=== PATIENT | male | born 1955 | race Caucasian/White ===

== ENCOUNTER 2018-03-11 08:59 | Inpatient (IN) ==
[2018-03-11] MEDS ORDERED: Heparin 1,000 UNITS/500 mL 1,000 ML ONE (09:10)
[2018-03-11] MEDS ORDERED: Lidocaine 1% 20 ML MDV ONE (09:11)
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
[2018-03-11] MEDS ORDERED: CeFAZolin Syr 2,000MG/20 ML 2,000 MG/20 ML SYRINGE IVPB ONE (09:27)
[2018-03-11] MEDS ORDERED: Albuterol 2.5 MG/3 ML NEBULIZER IH ONE (09:27)
[2018-03-11] MEDS ORDERED: Albuterol 2.5 MG/3 ML NEBULIZER ONE (09:29)
[2018-03-11] MEDS: Ringers Solution, Lactated 1,000 ML IVC SCH ×2 (09:54→12:00)
--- NOTE | 2018-03-11 09:59 | History & Physical Report ---
Date of Encounter: 03/11/18 Time of Encounter: 09:58 24 Hour HP Update - Instructions Instructions: If the History and Physical is less than 30 days old and was completed prior to A.M. admission and or procedure and has NOT been updated on calendar day of procedure please complete this update prior to performing procedure. - Update Patient reports changes in Medical Condition: No Changes in examination, assessment, or condition: No Changes in Medication: No Preop tests/diagnostics Reviewed: Yes Surgery Remains Indicated: Yes Consent for Planned Operative Procedure(s) Verified: Yes - Pre-Operative Checklist Preoperative Checklist Indicated: Yes Prophylactic Antibiotic Ordered: Yes Home Medications Include Beta Jack: No Beta Jack Taken Today (Day of Surgery): No Beta Jack Taken Yesterday (Day Prior to Surgery): No Is VTE Prophylaxis Indicated?: Yes
[2018-03-11] MEDS ORDERED: ceFAZolin 1,000 MG, Sodium Chloride IRRigation 1,000 ML IR ONE (11:35)
[2018-03-11] MEDS ORDERED: *HR* Heparin 5,000 UNIT/ML VIAL ONE ×3 (11:38→12:22)
[2018-03-11] MEDS ORDERED: Dexamethasone 4 MG/ML VIAL ONE (11:38)
[2018-03-11] MEDS ORDERED: *HR* Phenylephrine 10 MG/ML VIAL ONE (11:38)
[2018-03-11] MEDS ORDERED: *HR* FentaNYL (PF) 100 MCG/2 ML VIAL ONE (11:38)
[2018-03-11] MEDS ORDERED: *HR* Succinylcholine 200 MG/10 ML VIAL IVP ONE (11:38)
[2018-03-11] MEDS ORDERED: *HR* Midazolam HCl 5 MG/5 ML VIAL IVP ONE (11:38)
[2018-03-11] MEDS ORDERED: *HR* Rocuronium Bromide 50 MG/5 ML VIAL ONE (11:38)
[2018-03-11] MEDS ORDERED: *HR* Propofol 200 MG/20 ML VIAL IVP ONE (11:38)
[2018-03-11] MEDS ORDERED: Ondansetron 4 MG/2 ML VIAL ONE (11:38)
[2018-03-11] MEDS ORDERED: EPHEDrine 50 MG/ML VIAL ONE (11:38)
[2018-03-11] MEDS ORDERED: Lidocaine -MPF 4% 5 ML AMPUL ONE (11:38)
[2018-03-11] MEDS ORDERED: Lidocaine -MPF 2% 2 ML VIAL ONE (11:38)
[2018-03-11] MEDS ORDERED: *HR* Remifentanil 1 MG VIAL IVP ONE (11:38)
--- NOTE | 2018-03-11 11:44 | Anesthesia Procedures ---
Date of Encounter: 03/11/18 Time of Encounter: 10:30 Procedures: Anesthesia - Arterial Line Consent obtained: written consent Time out performed: Yes (procedure done after induction) Size (Gauge): 20 Length (inches): 1 3/4 Technique Used: sterile prep, guide wire technique Post-Procedure: line taped into place, dry sterile dressing placed Patient tolerated procedure: well Complications: none Site: Radial L Comments: first attempt unable to thread catheter. Successful second puncture
[2018-03-11] MEDS ORDERED: Ondansetron 4 MG/2 ML VIAL IVP ONE (11:46)
[2018-03-11] MEDS ORDERED: *HR* Labetalol 100 MG/20 ML MDV IVP PRN (11:46)
[2018-03-11] MEDS ORDERED: *HR* Promethazine 25 MG/ML VIAL IVP PRN (11:46)
--- NOTE | 2018-03-11 13:03 | Operative Note ---
Date of procedure: 03/11/18 Pre-op diagnosis: right carotid stenosis Post-op diagnosis: same Procedure: right carotid endarterectomy with 8 Fr shunt and bovine patch angioplasty Complications: none Anesthesia: GETA Surgeon: Deep Hardy Was there an activities assistant present: No Estimated blood loss (cc): 75 Specimen: 0 Condition: stable Disposition: PACU Procedure in Detail: History Mr. Myers is a 62-year-old white male with multiple ongoing medical problems who was found to have a carotid bruit and abnormal carotid duplex scan. There was marked elevation in his velocities which led to an angiogram performed last week. This demonstrated a critical stenosis of greater than 95% in the proximal right internal carotid artery. The patient now comes to the operating room for correction of this lesion. Procedure After informed consent was obtained the patient was taken to the operating room. General endotracheal anesthesia was established under arterial line pressure monitoring. The right neck was then sterilely prepped and draped. A timeout protocol was observed. An oblique incision was then made parallel to the anterior border of the right sternocleidomastoid muscle. Dissection was carried down to reveal the carotid sheath. The carotid sheath was opened. The contents of the carotid sheath were identified and the nerve structures were preserved. Crossing veins were divided and ligated. Selective control was obtained of the carotid arteries. 5 thousand units of heparin were administered intravenously. After a three-minute delay the vessels were clamped with the internal carotid artery clamped first. Using an 11 blade knife and Snell scissors the artery was opened. An 8 Nigerien shunt was then placed. Patency the shunt was confirmed by the use of intraoperative Doppler. Evaluation of the plaque revealed a critical plaque that was heterogeneous at the origin of the internal carotid artery. There was no finding of intraluminal thrombus. There appeared to be old intramural thrombus. Dissection of the plaque was then begun at the distal aspect of the common carotid artery. A dissection plane was established. The dissection was carried proximally and distally. The orifice of the external carotid and superior thyroid artery were endarterectomized. The endpoint on the internal carotid artery was inspected. The endpoint was smooth and no tacking sutures were necessary. The bed of the vessels and flushed with a copious amount of heparinized saline. A bovine pericardial patch angioplasty was then performed. This was sewn into position using 2 6-0 Prolene sutures. Leaving a small space open on the suture line the shunt was clamped and divided and removed. Backbleeding was then performed of the internal carotid artery which was then reclamped. The final few sutures were then placed. After appropriate backbleeding and flushing the arteries were opened first into the external carotid and then finally into the internal carotid artery. There was no hemodynamic distress with this maneuver. The arteries demonstrated excellent pulsation on palpation and also with Doppler's evaluation. The wound was irrigated and hemostasis achieved. A superficial cervical block using half percent Marcaine was performed. The wound was then closed in layers using absorbable suture. There were no intraoperative complications. The patient tolerated the procedure well. The patient was extubated on the operating room table. He was neurologically intact. He was then transferred to the recovery room in stable condition.
[2018-03-11] MEDS: *HR* HYDROmorphone (PF) 1 MG/ML SYRINGE IVP PRN ×4 (13:12→13:35)
[2018-03-11] MEDS ORDERED: *HR* OxyCODONE Immed Rel 5 MG TABLET PO PRN (13:34)
[2018-03-11] MEDS ORDERED: Acetaminophen IV 1,000 MG/100 ML INFUS..BTL IVPB ONE (13:34)
--- NOTE | 2018-03-11 13:57 | Anesthesia Evaluation Post Op ---
Date of Encounter: 03/11/18 Time of Encounter: 14:00 - Vital Signs Vital Signs: Selected Entries 03/11/18 13:35 03/11/18 13:45 Temperature 98.7 F Pulse Rate 72 Respiratory Rate 18 Blood Pressure 94/60 O2 Sat by Pulse Oximetry 98 - Lungs Lungs: Clear Ascult./Percussion - Airway Airway: Non-obstructed - Cardiovascular Regular Rate - Mental Status Mental Status: Alert & Oriented, Answers Appropriately - Nausea Vomiting Nausea Vomiting: Not Present - Hydration Hydration: Tolerates oral liquids - Discharge PostOp Status: Transfer Patient to floor
[2018-03-11] MEDS ORDERED: Albuterol 2.5 MG/3 ML NEBULIZER IH PRN (14:45)
[2018-03-11] MEDS ORDERED: Ondansetron 4 MG/2 ML VIAL IVP PRN (14:45)
[2018-03-11] MEDS ORDERED: diazePAM 5 MG TABLET PO PRN (14:45)
[2018-03-11] MEDS ORDERED: *HR* Labetalol 20 MG/4 ML SYRINGE IVP PRN (14:45)
[2018-03-11] MEDS ORDERED: Naloxone 0.4 MG/ML INJ IVP PRN (14:45)
[2018-03-11] MEDS ORDERED: Cyanocobalamin (B-12) 1,000 MCG/ML VIAL IM SCH (14:45)
[2018-03-11] MEDS: Nicotine 21 MG PATCH.TD24 TD SCH (17:59)
[2018-03-11] MEDS: Gabapentin 400 MG CAPSULE PO SCH ×2 (18:00→20:16)
[2018-03-11] MEDS: *HR* OxyCODONE/APAP 10/325 TABLET PO PRN ×2 (18:00→22:59)
[2018-03-11] MEDS: Diclofenac Sodium 75 MG TABLET PO SCH (20:16)
[2018-03-11] MEDS: Acetaminophen/Butalbital/CaffeineTABLET PO PRN (20:16)
[2018-03-11] MEDS: Methocarbamol 750 MG TABLET PO PRN (20:17)
[2018-03-11] MEDS ORDERED: Lidocaine OINT 35.44 GM TUBE TP PRN (21:02)
[2018-03-12 04:53] LABS: Basophils % 0.1 %; Eosinophils % 0.1 %; Hematocrit 26.7 % (37.5-50.1); Immature Granulocytes % 0.4 % (0-4); Lymphocytes # 1.8 K/mcL (0.6-4.6); Lymphocytes % 14.5 %; Mean Corpuscular HGB Conc 34.8 g/dL (31.6-35.5); Mean Corpuscular Hemoglobin 34.3 pg (28.0-33.3); Mean Corpuscular Volume 98.5 fL (83.0-100.0); Mean Platelet Volume 9.5 fL (9.4-12.4); Monocytes # 0.6 K/mcL (0.0-1.3); Neutrophils # 9.9 K/mcL (1.6-8.9); Platelet Count 218 K/mcL (140-400); Red Blood Count 2.71 M/mcL (4.19-5.50); Red Cell Distribution Width 13.2 % (11.5-14.5); Segmented Neutrophils % 79.9 %
[2018-03-12 04:59] LABS: Hemoglobin 9.3 g/dL (12.9-16.9)
[2018-03-12 05:13] LABS: BUN/Creatinine Ratio 24 (6-26); Blood Urea Nitrogen 28 mg/dL (8-23); Calcium 8.4 mg/dL (8.6-10.3); Carbon Dioxide 22 mEq/L (23-29); Chloride 102 mEq/L (98-107); Glucose 133 mg/dL (70-105); Osmolality,Calculated 277 (280-300); Potassium 4.3 mEq/L (3.5-5.1); Sodium 130 mEq/L (136-145); eGFR For Non-African Americans > 60 (> 60)
[2018-03-12] MEDS: Diclofenac Sodium 75 MG TABLET PO SCH (08:06)
[2018-03-12] MEDS: Acetaminophen/Butalbital/CaffeineTABLET PO PRN (08:06)
[2018-03-12] MEDS: Gabapentin 400 MG CAPSULE PO SCH (08:07)
[2018-03-12] MEDS: *HR* OxyCODONE/APAP 10/325 TABLET PO PRN ×2 (08:07→12:00)
[2018-03-12] MEDS: Nicotine 21 MG PATCH.TD24 TD SCH (08:07)
[2018-03-12] MEDS ORDERED: Lisinopril 20 MG TABLET PO SCH (09:00)
[2018-03-12] MEDS ORDERED: HYDROCHLOROTHIAZIDE PO SCH (09:00)
[2018-03-12] MEDS ORDERED: (Vilazodone Hcl [Viibryd] 20 MG) PO SCH (09:00)
[2018-03-12] MEDS ORDERED: [UNRECOGNIZED DRUG - OTHER] PO SCH (09:00)
[2018-03-12] MEDS ORDERED: hydroCHLOROthiazide 25 MG TABLET PO SCH (09:00)
[2018-03-12] MEDS ORDERED: BENAZEPRIL PO SCH (09:00)
[2018-03-12] MEDS ORDERED: Aspirin Enteric Coated 81 MG Tablet PO SCH (09:00)
--- NOTE | 2018-03-12 09:29 | Discharge Summary ---
Orders not resulted at time of discharge: Pending orders 03/07/18 18:21 Red Blood Cells [BBK] Routine Date of Encounter: 03/12/18 Time of Encounter: 13:10 - Discharge Diagnosis (1) Carotid stenosis, bilateral Priority: Primary Status: Acute Comments: Patient has an abnormal carotid duplex scan which then led to an angiogram. The antrum demonstrated a greater than 95% stenosis of the right internal carotid artery. Patient was admitted for right carotid endarterectomy. (2) COPD (chronic obstructive pulmonary disease) Priority: Secondary Status: Chronic Comments: Patient has history of COPD. He is under medical treatment. Qualifiers: COPD type: unspecified COPD Qualified Code(s): J44.9 - Chronic obstructive pulmonary disease, unspecified (3) Tobacco abuse Priority: Secondary Status: Chronic Comments: Patient has long history of tobacco abuse. This was reviewed in detail with the patient and the need for complete tobacco cessation was emphasized. (4) Lumbar stenosis Priority: Secondary Status: Chronic Comments: Patient has chronic pain with lumbar spine disease. Qualifiers: Neurogenic claudication status: unspecified Qualified Code(s): M48.061 - Spinal stenosis, lumbar region without neurogenic claudication - Hospital Course Hospital course: Mr. Myers is a 62 year old male With a high grade right carotid artery stenosis by duplex scanning and angiogram. Patient was admitted for a right carotid endarterectomy. The procedure was performed under general endotracheal anesthesia. There were no periprocedural complications. The patient tolerated the procedure well. He had uneventful postoperative course. The patient was felt fit for discharge on the afternoon of postoperative day #1. Wound care as well as medications were reviewed with the patient prior to discharge. Time spent discussing smoking cessation with patient: 3 to 10 minutes - Time Spent with Patient Total time spent providing and/or coordinating discharge services: - Discharge Medications Home Medications: Albuterol Neb [Proventil Neb] 2.5 mg IH BID PRN 03/07/18 [History] Albuterol Sulfate [Ventolin Hfa] 18 gm IH Q6H PRN 03/07/18 [History] Butalb/Acetaminophen/Caffeine [Fioricet 50-300-40 mg Capsule] 1 cap PO BID PRN 03/07/18 [History] Cyanocobalamin (B-12) [Vitamin B12] 1,000 mcg IM QWEEK 03/07/18 [History] Diclofenac Sodium [Voltaren] 75 mg PO BID 03/07/18 [History] Gabapentin [Neurontin] 800 mg PO TID 03/07/18 [History] Methocarbamol [Robaxin] 750 mg PO Q4H PRN 03/07/18 [History] Promethazine [Phenergan] 25 mg PO Q8H PRN 03/07/18 [History] Vilazodone HCl [Viibryd] 20 mg PO DAILY 03/07/18 [History] Zolpidem [Ambien] 10 mg PO HS PRN 03/07/18 [History] diazePAM [Valium] 5 mg PO HS PRN 03/07/18 [History] Aspirin [Lo-Dose Aspirin EC] 81 mg PO DAILY 03/11/18 [History] Benazepril/Hydrochlorothiazide [Lotensin Hct 20-25 mg Tablet] 1 tab PO DAILY 02/19 [History] Oxycodone HCl/Acetaminophen [Endocet 10-325 mg Tablet] 1 tab PO Q4H PRN [History] Allergies/Adverse Reactions: 3 Allergy/AdvReac Type Severity Reaction Status Date / Time No Known Allergies Allergy Verified 03/11/18 10:16 Date of admission: 03/11/18 14:06 Primary care physician: Swapna Marin Consults: None Procedure(s) Performed: Right carotid endarterectomy with patch angioplasty Discharging clinician: Deep Hardy Anticipated date of discharge: 03/12/18 Exam Vital Signs, Last 4 Hours Temp Pulse Resp BP Pulse Ox 03/12/18 08:13 64 18 147/83 97 03/12/18 07:07 98.2 F 49 16 141/77 98 General: Present: Conversant, No Apparent Distress HEENT: Present: Atraumatic, Normocephaly, Trachea midline Neck: Absent: JVD Cardiac: Present: Reg Rate and Rhythm Lungs: Present: Decreased breath sounds, Other (Soft wheezes bilaterally) Neuro: Present: Alert and responsive, No focal deficits noted, Cranial nerves grossly intact, Motor nerves grossly intact, Sensory nerves grossly intact Vascular: Present: Surgical incisions (Right neck incision is clean and dry.) Skin: Present: No rashes noted on visualized skin - Patient Status Disposition: Home, Self-Care Condition: Good Functional capacity at discharge: independent ambulation Overall status at discharge: patient is progressing back to baseline - Discharge Instructions Follow Up With: Swapna Marin [Primary Care Provider] - (left voice mail for them to call me back. Sent fax on 03-12-18 @ [phone]) Deep Hardy MD [Partnered Physician] - 04/02/18 11:45 am Additional Instructions: Keep right neck incision dry for total of 5 days following surgery Resume usual home medications Use ice pack on right neck for 48 hours after discharge Use incentive spirometer at home to use 10 times an hour while awake for 2 weeks No automobile driving No lifting greater than 10 pounds No manual labor - Diet and Activity Activity: increase activity as tolerated Diet: low fat, low cholesterol - VTE Documentation of Mechanical Device: Intermittent pneumatic compression device
[2018-03-12] MEDS: Methocarbamol 750 MG TABLET PO PRN (12:00)
[2018-03-12 12:02] VITALS: BP 143/99
== END 2018-03-12 15:54 | disposition home or self-care (01) | DRG 24 ==
LOC: SAMDAY 08:59 → 2NNU 14:06
PROVIDERS: ADMIT Surgery Vascular Surgery; ATTEND Surgery Vascular Surgery

== ENCOUNTER 2020-10-31 09:41 | Inpatient (IN) ==
[2020-10-31] MEDS ORDERED: Isovue-370 500 ML BOTTLE IVP ONE (09:50)
[2020-10-31] MEDS ORDERED: Naloxone 0.4 MG/ML INJ IVP ONE (09:54)
[2020-10-31 10:11] LABS: Mean Corpuscular HGB Conc 33.4 g/dL (31.6-35.5); Mean Platelet Volume 9.5 fL (9.4-12.4); Red Blood Count 3.51 M/mcL (4.19-5.50); Red Cell Distribution Width 13.8 % (11.5-14.5)
[2020-10-31 10:12] LABS: Hematocrit 35.3 % (37.5-50.1); Hemoglobin 11.8 g/dL (12.9-16.9); Mean Corpuscular Hemoglobin 33.6 pg (28.0-33.3); Mean Corpuscular Volume 100.6 fL (83.0-100.0); Platelet Count 260 K/mcL (140-400); White Blood Count 26.8 K/mcL (4.3-11.1)
[2020-10-31 10:18] LABS: Prothrombin Time 12.1 Seconds (9.4-12.1)
[2020-10-31 10:20] LABS: Activated Partial Thrombo Time 27.9 Seconds (26.0-36.0)
[2020-10-31 10:28] LABS: Acetaminophen < 10 mcg/mL (10-20); Ethanol < 10 mg/dL (Less than 10); Salicylate < 2.5 mg/dL (15.0-30.0)
[2020-10-31 10:31] LABS: BUN/Creatinine Ratio 11 (6-26); Blood Urea Nitrogen 28 mg/dL (8-23); Calcium 9.1 mg/dL (8.6-10.3); Carbon Dioxide 26 mEq/L (23-29); Chloride 94 mEq/L (98-107); Glucose 147 mg/dL (70-105); Osmolality,Calculated 274 (280-300); Potassium 5.9 mEq/L (3.5-5.1); Sodium 128 mEq/L (136-145); Troponin I < 0.03 ng/mL (< 0.04); eGFR For African Americans 32 (> 60); eGFR For Non-African Americans 26 (> 60)
[2020-10-31 11:08] LABS: ABG Base Excess 0 mEq/L (-2 to 3); ABG HCO3 25 mEq/L (21-27); ABG Oxygen Saturation 90 % (95-98); ABG PCO2 41 mmHg (35-45); ABG PH 7.39 pH Units (7.32-7.45); ABG PO2 58 mmHg (85-104); ABG TCO2 26 mEq/L (20-26)
[2020-10-31] MEDS ORDERED: Piperacillin/Tazobactam 3.375 GM in 0.9 % Sodium Chloride Mini Bag 100 ML IVPB ONE (11:13)
[2020-10-31] MEDS ORDERED: Vancomycin 1,250 MG/262.5 ML IV.SOLN IVPB ONE (11:30)
[2020-10-31 12:34] LABS: Alanine Aminotransferase 12 Units/L (7-52); Albumin/Globulin Ratio 1.3 (1.1-2.2); Alkaline Phosphatase 113 Units/L (34-104); Aspartate Amino Transferase 22 Units/L (13-39); Bilirubin,Direct 0.1 mg/dL (0.0-0.2); Bilirubin,Indirect 0.4 mg/dL (0.0-1.0); Bilirubin,Total 0.5 mg/dL (0.3-1.0)
[2020-10-31] MEDS ORDERED: 0.9 % Sodium Chloride 1,000 ML IVC ONE (12:40)
[2020-10-31] MEDS ORDERED: Ondansetron 4 MG/2 ML VIAL IVP ONE (12:42)
[2020-10-31] MEDS ORDERED: Ondansetron 4 MG/2 ML VIAL IVP PRN (13:46)
[2020-10-31] MEDS ORDERED: *HR* OxyCODONE/APAP 7.5/325 TABLET PO PRN (13:47)
[2020-10-31] MEDS: Ipratropium/Albuterol Neb 3 ML IH SCH ×2 (15:55→19:53)
[2020-10-31] MEDS: 0.9 % Sodium Chloride 1,000 ML IVC SCH ×2 (15:58→23:57)
[2020-10-31] MEDS: *HR* Heparin 5,000 UNIT/ML VIAL SQ SCH ×2 (15:59→21:19)
[2020-10-31] MEDS: amLODIPine 5 MG TABLET PO SCH (17:29)
[2020-10-31] MEDS: Sennosides/Docusate Sodium TABLET PO SCH (20:12)
[2020-10-31] MEDS: Famotidine 20 MG TABLET PO SCH (20:12)
[2020-10-31 22:52] LABS: Bilirubin,Urine Negative (Negative); Blood,Urine Moderate (Negative); Clarity,Urine Clear (Clear); Color,Urine Yellow (Yellow); Glucose,Urine (UA) Normal (Normal); Hyaline Casts,Urine Many per lpf (None Seen); Ketones,Urine Negative (Negative); Leukocyte Esterase,Urine Negative (Negative); Mucus,Urine Few per lpf (None-Few); Nitrite,Urine Negative (Negative); Protein,Urine 50 mg/dL (Neg-Trace); Specific Gravity,Urine > 1.030 (1.010-1.025); Squamous Epithelial Cell,Urine Few per hpf (None-Few); Urobilinogen,Urine Normal (Normal); WBC,Urine 0-3 per hpf (0-3)
[2020-10-31 22:59] LABS: Amphetamine Screen,Urine Negative ng/mL (Cutoff=1000); Barbiturate Screen,Urine Positive ng/mL (Cutoff=200); Benzodiazepines Screen,Urine Negative ng/mL (Cutoff=200); Cannabinoid Screen,Urine Negative ng/mL (Cutoff = 50); Cocaine Screen,Urine Negative ng/mL (Cutoff= 300); Opiate Screen,Urine Positive ng/mL (Cutoff=300); Phencyclidine Screen,Urine Negative ng/mL (Cutoff=25)
[2020-11-01] MEDS: Ipratropium/Albuterol Neb 3 ML IH SCH ×7 (00:04→23:37)
[2020-11-01 01:22] LABS: Acinetobacter baumannii by PCR Not Detected (Not Detect); Candida albicans by PCR Not Detected (Not Detect); Candida glabrata by PCR Not Detected (Not Detect); Candida krusei by PCR Not Detected (Not Detect); Candida parapsilosis by PCR Not Detected (Not Detect); Candida tropicalis by PCR Not Detected (Not Detect); Enterobacter cloacae Cmplx PCR Not Detected (Not Detect); Enterobacteriaceae by PCR Not Detected (Not Detect); Enterococcus by PCR Not Detected (Not Detect); Escherichia coli by PCR Not Detected (Not Detect); Klebsiella oxytoca by PCR Not Detected (Not Detect); Klebsiella pneumoniae by PCR Not Detected (Not Detect); Proteus by PCR Not Detected (Not Detect); Pseudomonas aeruginosa by PCR Not Detected (Not Detect); Serratia marcescens by PCR Not Detected (Not Detect); Staphylococcus aureus by PCR DETECTED (Not Detect); Streptococcus agalactiae(B)PCR Not Detected (Not Detect); Streptococcus by PCR Not Detected (Not Detect); Streptococcus pneumoniae PCR Not Detected (Not Detect); Streptococcus pyogenes (A) PCR Not Detected (Not Detect); mecA Methicillin-Resist Gene Not Detected (Not Detect)
[2020-11-01 02:17] LABS: Hematocrit 33.9 % (37.5-50.1); Mean Corpuscular HGB Conc 32.4 g/dL (31.6-35.5); Mean Corpuscular Hemoglobin 32.9 pg (28.0-33.3); Mean Corpuscular Volume 101.5 fL (83.0-100.0); Mean Platelet Volume 10.6 fL (9.4-12.4); Platelet Count 204 K/mcL (140-400); Red Blood Count 3.34 M/mcL (4.19-5.50); Red Cell Distribution Width 13.3 % (11.5-14.5); White Blood Count 26.3 K/mcL (4.3-11.1)
[2020-11-01 04:12] LABS: BUN/Creatinine Ratio 19 (6-26); Blood Urea Nitrogen 20 mg/dL (8-23); Calcium 9.2 mg/dL (8.6-10.3); Carbon Dioxide 24 mEq/L (23-29); Chloride 99 mEq/L (98-107); Glucose 108 mg/dL (70-105); Magnesium 1.7 mg/dL (1.6-2.6); Osmolality,Calculated 277 (280-300); Potassium 4.1 mEq/L (3.5-5.1); Sodium 132 mEq/L (136-145); eGFR For African Americans > 60 (> 60); eGFR For Non-African Americans > 60 (> 60)
[2020-11-01] MEDS: *HR* Heparin 5,000 UNIT/ML VIAL SQ SCH ×3 (06:13→21:10)
[2020-11-01] MEDS ORDERED: Lidocaine -MPF 2% 2 ML VIAL ONE (07:09)
[2020-11-01] MEDS ORDERED: Dexamethasone 4 MG/ML VIAL ONE (07:09)
[2020-11-01] MEDS ORDERED: Lidocaine -MPF 4% 5 ML AMPUL ONE (07:09)
[2020-11-01] MEDS ORDERED: *HR* Rocuronium Bromide 50 MG/5 ML VIAL ONE ×2 (07:09→08:53)
[2020-11-01] MEDS ORDERED: Ondansetron 4 MG/2 ML VIAL ONE (07:09)
[2020-11-01] MEDS ORDERED: *HR* Succinylcholine 200 MG/10 ML VIAL IVP ONE (07:09)
[2020-11-01] MEDS ORDERED: *HR* Midazolam HCl 2 MG/2 ML VIAL ONE (07:10)
[2020-11-01] MEDS ORDERED: *HR* FentaNYL (PF) 100 MCG/2 ML VIAL ONE ×2 (07:10→08:14)
[2020-11-01] MEDS ORDERED: *HR* Propofol 200 MG/20 ML VIAL IVP ONE (07:10)
[2020-11-01] MEDS ORDERED: Famotidine 20 MG/2 ML VIAL ONE (07:46)
[2020-11-01] MEDS ORDERED: Vancomycin 1,000 MG VIAL ONE (07:48)
[2020-11-01] MEDS: Famotidine 20 MG TABLET PO SCH ×2 (07:55→21:09)
[2020-11-01] MEDS ORDERED: *HR* Labetalol 20 MG/4 ML SYRINGE IVP ONE (08:40)
[2020-11-01] MEDS ORDERED: *HR* HYDROMORPHONE 2 MG/ML VIAL ONE (09:01)
[2020-11-01] MEDS ORDERED: Sugammadex Sodium 200 MG/2 ML VIAL IV ONE (09:03)
[2020-11-01] MEDS ORDERED: Ondansetron 4 MG/2 ML VIAL IVP PRN (09:53)
[2020-11-01] MEDS: *HR* HYDROmorphone (PF) 1 MG/ML SYRINGE IVP PRN ×4 (10:00→10:15)
[2020-11-01] MEDS ORDERED: Hydrocortisone Sodium Succ 100 MG/2 ML VIAL IVP ONE (10:28)
[2020-11-01] MEDS ORDERED: *HR* FentaNYL (PF) 100 MCG/2 ML VIAL IVP PRN (10:28)
[2020-11-01] MEDS ORDERED: *HR* FentaNYL (PF) 100 MCG/2 ML VIAL IVP ONE (10:30)
[2020-11-01] MEDS: 0.9 % Sodium Chloride 1,000 ML IVC SCH ×2 (12:29→21:09)
[2020-11-01] MEDS: Morphine Sulfate ER (12 HR) 30 MG TABLET.ER PO SCH ×2 (12:29→21:09)
[2020-11-01] MEDS: Piperacillin/Tazobactam 3.375 GM in 0.9 % Sodium Chloride Mini Bag 100 ML IVPB SCH (15:18)
[2020-11-01] MEDS: Gabapentin 300 MG CAPSULE PO SCH ×2 (15:23→21:05)
[2020-11-01] MEDS: Sennosides/Docusate Sodium TABLET PO SCH (21:05)
[2020-11-01] MEDS: Vancomycin 1,250 MG/262.5 ML IV.SOLN IVPB SCH (21:19)
[2020-11-02] MEDS: Piperacillin/Tazobactam 3.375 GM in 0.9 % Sodium Chloride Mini Bag 100 ML IVPB SCH ×2 (01:15→08:43)
[2020-11-02 01:19] LABS: Hematocrit 25.8 % (37.5-50.1); Mean Corpuscular HGB Conc 34.9 g/dL (31.6-35.5); Mean Corpuscular Hemoglobin 34.6 pg (28.0-33.3); Mean Corpuscular Volume 99.2 fL (83.0-100.0); Mean Platelet Volume 9.9 fL (9.4-12.4); Platelet Count 183 K/mcL (140-400); Red Cell Distribution Width 13.2 % (11.5-14.5); White Blood Count 19.7 K/mcL (4.3-11.1)
[2020-11-02 01:41] LABS: BUN/Creatinine Ratio 26 (6-26); Blood Urea Nitrogen 18 mg/dL (8-23); Calcium 8.2 mg/dL (8.6-10.3); Carbon Dioxide 21 mEq/L (23-29); Chloride 101 mEq/L (98-107); Glucose 109 mg/dL (70-105); Osmolality,Calculated 272 (280-300); Potassium 4.3 mEq/L (3.5-5.1); Sodium 130 mEq/L (136-145); eGFR For African Americans > 60 (> 60); eGFR For Non-African Americans > 60 (> 60)
[2020-11-02] MEDS: Ipratropium/Albuterol Neb 3 ML IH SCH ×6 (03:30→22:37)
[2020-11-02] MEDS: *HR* Heparin 5,000 UNIT/ML VIAL SQ SCH ×3 (04:32→20:41)
[2020-11-02] MEDS: 0.9 % Sodium Chloride 1,000 ML IVC SCH ×2 (07:21)
[2020-11-02] MEDS: amLODIPine 5 MG TABLET PO SCH ×2 (07:22→08:43)
[2020-11-02] MEDS: Sennosides/Docusate Sodium TABLET PO SCH ×3 (07:22→21:51)
[2020-11-02] MEDS: Famotidine 20 MG TABLET PO SCH ×2 (08:42→20:41)
[2020-11-02] MEDS: Gabapentin 300 MG CAPSULE PO SCH ×4 (08:43→21:49)
[2020-11-02] MEDS: Vancomycin 1,250 MG/262.5 ML IV.SOLN IVPB SCH (08:43)
[2020-11-02] MEDS: Morphine Sulfate ER (12 HR) 30 MG TABLET.ER PO SCH ×2 (08:43→21:48)
[2020-11-02] MEDS: Ondansetron 4 MG/2 ML VIAL IVP PRN (10:49)
[2020-11-02] MEDS ORDERED: Perflutren Lipid Microsphere 1.3 ML in 0.9 % Sodium Chloride 8.7 ML IVP PRN (17:10)
[2020-11-02] MEDS ORDERED: Ampicillin/Sulbactam 3,000 MG in 0.9 % Sodium Chloride Mini Bag 100 ML IVPB SCH (18:00)
[2020-11-02] MEDS: CeFAZolin 2 GM/120 ML BAG IVPB SCH (18:06)
[2020-11-03 00:49] LABS: Mean Corpuscular HGB Conc 33.3 g/dL (31.6-35.5); Mean Corpuscular Hemoglobin 33.6 pg (28.0-33.3); Mean Corpuscular Volume 100.7 fL (83.0-100.0); Mean Platelet Volume 9.7 fL (9.4-12.4); Platelet Count 208 K/mcL (140-400); Red Blood Count 2.98 M/mcL (4.19-5.50); Red Cell Distribution Width 13.2 % (11.5-14.5)
[2020-11-03 01:08] LABS: BUN/Creatinine Ratio 23 (6-26); Blood Urea Nitrogen 15 mg/dL (8-23); Calcium 8.5 mg/dL (8.6-10.3); Carbon Dioxide 25 mEq/L (23-29); Chloride 100 mEq/L (98-107); Glucose 96 mg/dL (70-105); Osmolality,Calculated 273 (280-300); Potassium 3.8 mEq/L (3.5-5.1); Sodium 131 mEq/L (136-145); eGFR For African Americans > 60 (> 60); eGFR For Non-African Americans > 60 (> 60)
[2020-11-03] MEDS: CeFAZolin 2 GM/120 ML BAG IVPB SCH ×3 (01:55→18:02)
[2020-11-03] MEDS: Ipratropium/Albuterol Neb 3 ML IH SCH ×6 (03:37→23:30)
[2020-11-03] MEDS: *HR* Heparin 5,000 UNIT/ML VIAL SQ SCH ×3 (05:53→20:40)
[2020-11-03] MEDS: Sennosides/Docusate Sodium TABLET PO SCH ×2 (08:41→20:40)
[2020-11-03] MEDS: amLODIPine 5 MG TABLET PO SCH (08:41)
[2020-11-03] MEDS: Gabapentin 300 MG CAPSULE PO SCH ×3 (08:42→20:39)
[2020-11-03] MEDS: Famotidine 20 MG TABLET PO SCH ×2 (08:42→20:39)
[2020-11-03] MEDS: Morphine Sulfate ER (12 HR) 30 MG TABLET.ER PO SCH ×2 (08:50→20:40)
[2020-11-03] MEDS ORDERED: lisinopriL 10 MG TABLET PO SCH (09:00)
[2020-11-03] MEDS: *HR* OxyCODONE/APAP 7.5/325 TABLET PO PRN (20:51)
[2020-11-04 01:45] LABS: BUN/Creatinine Ratio 23 (6-26); Blood Urea Nitrogen 15 mg/dL (8-23); Calcium 8.2 mg/dL (8.6-10.3); Carbon Dioxide 25 mEq/L (23-29); Chloride 99 mEq/L (98-107); Glucose 95 mg/dL (70-105); Osmolality,Calculated 277 (280-300); Potassium 3.4 mEq/L (3.5-5.1); Sodium 133 mEq/L (136-145); eGFR For African Americans > 60 (> 60); eGFR For Non-African Americans > 60 (> 60)
[2020-11-04] MEDS: CeFAZolin 2 GM/120 ML BAG IVPB SCH ×3 (02:14→15:30)
[2020-11-04 02:26] LABS: Hemoglobin 10.3 g/dL (12.9-16.9); Mean Corpuscular HGB Conc 34.3 g/dL (31.6-35.5); Mean Corpuscular Hemoglobin 33.4 pg (28.0-33.3); Mean Corpuscular Volume 97.4 fL (83.0-100.0); Platelet Count 234 K/mcL (140-400); Red Blood Count 3.08 M/mcL (4.19-5.50); Red Cell Distribution Width 12.9 % (11.5-14.5); White Blood Count 8.7 K/mcL (4.3-11.1)
[2020-11-04] MEDS: Ipratropium/Albuterol Neb 3 ML IH SCH ×4 (03:41→15:13)
[2020-11-04] MEDS: *HR* Heparin 5,000 UNIT/ML VIAL SQ SCH ×2 (05:54→14:03)
[2020-11-04 07:33] VITALS: BP 180/96
[2020-11-04] MEDS: Sennosides/Docusate Sodium TABLET PO SCH (07:43)
[2020-11-04] MEDS: Famotidine 20 MG TABLET PO SCH (07:43)
[2020-11-04] MEDS: Gabapentin 300 MG CAPSULE PO SCH ×2 (07:43→14:03)
[2020-11-04] MEDS: Morphine Sulfate ER (12 HR) 30 MG TABLET.ER PO SCH (07:44)
[2020-11-04] MEDS: amLODIPine 5 MG TABLET PO SCH (07:44)
[2020-11-04] MEDS ORDERED: lisinopriL 20 MG TABLET PO SCH (09:00)
[2020-11-04] MEDS: *HR* OxyCODONE/APAP 7.5/325 TABLET PO PRN ×2 (09:19→14:03)
[2020-11-04] MEDS: Ondansetron 4 MG/2 ML VIAL IVP PRN (14:04)
[2020-11-04] MEDS ORDERED: CeFAZolin 2 GM/120 ML BAG IVPB SCH (16:00)
== END 2020-11-04 16:20 | disposition home health service (06) | DRG 856 ==
LOC: EMEROOARM 09:41 → 2NNU 13:50
PROVIDERS: ADMIT Thoracic Surgery (Cardiothoracic Vascular Surgery); ATTEND Thoracic Surgery (Cardiothoracic Vascular Surgery)